=== PATIENT | male | born 1955 | race African-American/Black ===

== ENCOUNTER 2021-11-23 10:07 | Emergency (ER) | payer OTHER ==
[2021-11-23 10:18] VITALS: BP 156/84; PULSE 99; TEMP 98.3; BMI 29.2
== END 2021-11-23 11:18 | disposition home or self-care (01) ==
LOC: JERFT 10:07
DX: H11.32 Conjunctival hemorrhage, left eye (principal)
CPT/HCPCS: 99283-25

== ENCOUNTER 2021-12-02 13:11 | Inpatient (IN) | payer OTHER ==
[2021-12-02] MEDS ORDERED: ALBUTEROL SO4 2.5/IPRATROPIUM 0.5 INH SOL 3 ML VIAL.NEB. NEB ONE (13:29)
[2021-12-02] MEDS ORDERED: methylPREDNISolone NA SUCC 125 MG/2 ML VIAL IVPUSH ONE (13:30)
[2021-12-02] MEDS ORDERED: ACETAMINOPHEN 1000 MG/100 ML BAG IVPB ONE (13:31)
[2021-12-02] MEDS ORDERED: SODIUM CHLORIDE 0.9% 500 ML INFUS.BAG IV ONE (13:47)
[2021-12-02] MEDS ORDERED: ALBUTEROL SO4 0.083% IH SOL 2.5 MG/3 ML VIAL.NEB. NEB ONE (13:50)
[2021-12-02] MEDS ORDERED: ALBUTEROL SO4 0.5 % INH SOLN 2.5 MG/0.5 ML VIAL.NEB. NEB ONE (13:50)
[2021-12-02] MEDS ORDERED: ACETAMINOPHEN INJECTION 100 ML IVPB ONE (13:50)
[2021-12-02 14:12] LABS: VENOUS BASE EXCESS 0.6 mmol/L (-2-2); VENOUS PCO2 64.7 mmHg (38-52); VENOUS PH 7.275 (7.310-7.410)
[2021-12-02 14:16] LABS: BASO % 0.1 % (0-2.0); HEMATOCRIT 47.7 % (35.4-49); HEMOGLOBIN 15.1 GM/dL (11.7-16.9); LYMPH % 6.7 % (8-40); MCH 30.1 pg (25.7-33.7); MCHC 31.7 g/dl (32.0-35.9); MEAN PLT VOLUME 7.8 fl (7.5-11.1); MONO % 7.3 % (3.8-10.2); NEUT % 85.9 % (42.8-82.8); PLATELET COUNT 194 10^3/uL (134-434); RBC 5.03 M/mm3 (4.00-5.60); WHITE BLOOD COUNT 17.7 K/mm3 (4.0-10.0)
[2021-12-02 14:20] LABS: INR 1.2 (0.83-1.09); PROTHROMBIN TIME (PATIENT) 13.8 SEC (9.7-13.0)
[2021-12-02 14:22] LABS: ACTIVATED PTT 38.1 SECONDS (25.2-36.5)
[2021-12-02] MEDS ORDERED: PIPERACILLIN/TAZOB 4.5 GM 4.5 GM in DEXTROSE 5%-WATER 100 ML IVPB ONE (14:30)
[2021-12-02] MEDS ORDERED: AZTREONAM 2 GM in DEXTROSE 5%-WATER 100 ML IVPB ONE (14:47)
[2021-12-02 15:03] LABS: ALBUMIN 3.2 g/dl (3.4-5.0); ALK PHOS 113 U/L (45-117); ANION GAP 7 MMOL/L (8-16); BILIRUBIN,TOTAL 0.7 mg/dL (0.2-1); CHLORIDE 98 mmol/L (98-107); CO2 30 mmol/L (21-32); CREATININE 1.2 mg/dL (0.55-1.3); GLUCOSE,RANDOM 113 mg/dL (74-106); SGOT/AST 23 U/L (15-37); SGPT/ALT 19 U/L (13-61); SODIUM 136 mmol/L (136-145); TOT PROT 7.6 g/dl (6.4-8.2)
[2021-12-02] MEDS ORDERED: AZTREONAM 2 GM VIAL (RESTRICTED TO ID) ONE (15:09)
[2021-12-02] MEDS ORDERED: ENOXAPARIN NA (PORCINE) 40 MG/0.4 ML DISP.SYRIN SQ ONE (17:04)
[2021-12-02 17:06] LABS: EPI CELLS 10 /uL (0-25.1); HYALINE CASTS 8 /uL (0-3.1); URINE APPEARANCE CLEAR; URINE BACTERIA 37 /uL (0-1359); URINE BILIRUBIN NEGATIVE (NEGATIVE); URINE COLOR DK YELLOW; URINE GLUCOSE (UA) NEGATIVE (NEGATIVE); URINE KETONE TRACE (NEGATIVE); URINE LEUK ESTERASE NEGATIVE (NEGATIVE); URINE NITRITE NEGATIVE (NEGATIVE); URINE PROTEIN 1+ (NEGATIVE); URINE RBC 9 /uL (0-23.9); URINE WBC 21 /uL (0-25.8)
[2021-12-02] MEDS ORDERED: ENOXAPARIN NA (PORCINE) 100 MG/1 ML DISP.SYRIN SQ ONE (17:31)
[2021-12-02 18:39] LABS: VENOUS BASE EXCESS 1.5 mmol/L (-2-2); VENOUS O2 SATURATION 85.4 % (70-80)
[2021-12-02 18:41] LABS: VENOUS PCO2 104.5 mmHg (38-52); VENOUS PH 7.139 (7.310-7.410)
[2021-12-02] MEDS ORDERED: ACETAMINOPHEN 325 MG TABLET (FP) PO PRN (21:28)
[2021-12-02] MEDS ORDERED: QUEtiapine FUMARATE 25 MG TABLET PO ONE (22:22)
[2021-12-02] MEDS: MUPIROCIN 2% TOPICAL OINTMENT FOR DECOLONIZATION NS SCH (22:34)
[2021-12-02] MEDS: CHLORHEXIDINE GLUCONATE 4% CLEANSER FOR DECOLONIZATION TP SCH (22:34)
[2021-12-02] MEDS ORDERED: ALBUTEROL SO4 2.5/IPRATROPIUM 0.5 INH SOL 3 ML VIAL.NEB. NEB PRN (23:14)
[2021-12-03] MEDS: ENOXAPARIN NA (PORCINE) 100 MG/1 ML DISP.SYRIN SQ SCH ×2 (05:20→17:14)
[2021-12-03 05:48] LABS: ARTERIAL BLD GAS O2 SATURATION 92.8 % (95-98); ARTERIAL BLOOD GAS BASE EXCESS 1.4 mmol/L (-2-2); ARTERIAL BLOOD GAS PO2 80.7 mmHg (80-100); ARTERIAL BLOOD GAS pH 7.207 (7.350-7.450)
[2021-12-03 05:52] LABS: ALLENS TEST POSITIVE
[2021-12-03 07:15] LABS: BASO % 0.1 % (0-2.0); HEMATOCRIT 43.5 % (35.4-49); HEMOGLOBIN 14.1 GM/dL (11.7-16.9); LYMPH % 6.8 % (8-40); MCH 31.2 pg (25.7-33.7); MCHC 32.5 g/dl (32.0-35.9); MEAN CELL VOLUME 96.1 fl (80-96); MEAN PLT VOLUME 8.9 fl (7.5-11.1); MONO % 4.5 % (3.8-10.2); NEUT % 88.6 % (42.8-82.8); PLATELET COUNT 168 10^3/uL (134-434); RBC 4.53 M/mm3 (4.00-5.60); RDW 12.6 % (11.9-15.9)
[2021-12-03 07:42] LABS: ALBUMIN 2.9 g/dl (3.4-5.0); BLOOD UREA NITROGEN 28.1 mg/dL (7-18); MAGNESIUM 2.4 mg/dL (1.8-2.4)
[2021-12-03 07:45] LABS: CREATININE 1.1 mg/dL (0.55-1.3); PHOSPHOROUS 3.6 mg/dL (2.5-4.9)
[2021-12-03 07:46] LABS: BILIRUBIN,TOTAL 0.6 mg/dL (0.2-1); TOT PROT 7.1 g/dl (6.4-8.2)
[2021-12-03] MEDS ORDERED: ACETAMINOPHEN 1000 MG/100 ML BAG IVPB ONE (08:38)
[2021-12-03] MEDS: BICTEGRAV/EMTRICIT/TENOFOV (BIKTARVY) 50-200-25 MG TABLET PO SCH ×2 (10:00→17:14)
[2021-12-03] MEDS ORDERED: cefTRIAXone SODIUM 1 GM VIAL ONE (10:52)
[2021-12-03] MEDS ORDERED: DEXTROSE 5%-WATER - 50 ML IVPB ONE (10:52)
[2021-12-03] MEDS: CEFTRIAXONE 1 GM in DEXTROSE 5%-WATER - 50 ML IVPB SCH (10:57)
[2021-12-03] MEDS: CLOPIDOGREL BISULFATE 75 MG TABLET (FP) PO SCH (10:59)
[2021-12-03] MEDS: ASPIRIN 81 MG CHEWABLE TABLETS PO SCH (10:59)
[2021-12-03] MEDS: amLODIPine BESYLATE 5 MG TABLET (FP) PO SCH (10:59)
[2021-12-03] MEDS: MUPIROCIN 2% TOPICAL OINTMENT FOR DECOLONIZATION NS SCH ×2 (10:59→21:26)
[2021-12-03] MEDS: MULTIVITAMINS (DAILY MVI) TABLET (FP) PO SCH (10:59)
[2021-12-03] MEDS: methylPREDNISolone NA SUCC 40 MG/1 ML VIAL IVPUSH SCH ×2 (11:00→17:20)
[2021-12-03] MEDS ORDERED: AZITHROMYCIN IVPB 500 MG/250 ML BAG IVPB ONE (11:00)
[2021-12-03] MEDS ORDERED: AZITHROMYCIN IVPB 500 MG in DEXTROSE 5%-WATER - 250 ML IVPB ONE (11:00)
[2021-12-03 11:10] LABS: ARTERIAL BLD GAS O2 SATURATION 82.6 % (95-98); ARTERIAL BLOOD GAS BASE EXCESS 4.9 mmol/L (-2-2); ARTERIAL BLOOD GAS PO2 54.5 mmHg (80-100); ARTERIAL BLOOD GAS pH 7.272 (7.350-7.450)
[2021-12-03 11:11] LABS: ALLENS TEST POSITIVE
[2021-12-03] MEDS: ALBUTEROL SO4 2.5/IPRATROPIUM 0.5 INH SOL 3 ML VIAL.NEB. NEB SCH ×3 (12:00→20:05)
[2021-12-03 12:17] LABS: CALCIUM 9.2 mg/dL (8.5-10.1)
[2021-12-03 12:18] LABS: BLOOD UREA NITROGEN 28.5 mg/dL (7-18)
[2021-12-03 12:21] LABS: CREATININE 0.9 mg/dL (0.55-1.3)
[2021-12-03] MEDS: NICOTINE 21 MG/24 HOURS TOPICAL PATCH TD SCH (12:44)
[2021-12-03] MEDS: prednisoLONE ACETATE 1% OPHTH SUSP 5 ML BOTTLE OD SCH ×2 (17:13→21:26)
[2021-12-03] MEDS: CHLORHEXIDINE GLUCONATE 4% CLEANSER FOR DECOLONIZATION TP SCH (21:26)
[2021-12-03] MEDS ORDERED: QUEtiapine FUMARATE 25 MG TABLET PO ONE (22:00)
[2021-12-04] MEDS ORDERED: LORazepam 2 MG/ML SDV VIAL IM ONE (00:48)
[2021-12-04] MEDS ORDERED: ADENOSINE 6 MG/2 ML VIAL IVPUSH ONE (01:01)
[2021-12-04] MEDS ORDERED: dilTIAZem HCL 50 MG/10 ML - 10 ML VIAL IVPUSH ONE ×2 (01:16→03:13)
[2021-12-04] MEDS: CALCIUM GLUCONATE 10% - 1,000 MG/10 ML VIAL IVPB ONE ×2 (01:18→01:28)
[2021-12-04] MEDS ORDERED: CALCIUM GLUCONATE IN NACL 1 GM/50 ML BAG IVPB ONE (01:30)
[2021-12-04] MEDS: methylPREDNISolone NA SUCC 40 MG/1 ML VIAL IVPUSH SCH ×3 (03:24→17:31)
[2021-12-04] MEDS: ENOXAPARIN NA (PORCINE) 100 MG/1 ML DISP.SYRIN SQ SCH ×2 (05:36→17:30)
[2021-12-04 06:44] LABS: HEMATOCRIT 44.5 % (35.4-49); HEMOGLOBIN 14.4 GM/dL (11.7-16.9); MCH 30.7 pg (25.7-33.7); MCHC 32.4 g/dl (32.0-35.9); MEAN CELL VOLUME 94.6 fl (80-96); MEAN PLT VOLUME 8.8 fl (7.5-11.1); PLATELET COUNT 200 10^3/uL (134-434); RDW 12.6 % (11.9-15.9); WHITE BLOOD COUNT 12.7 K/mm3 (4.0-10.0)
[2021-12-04 07:05] LABS: ALBUMIN 2.7 g/dl (3.4-5.0); MAGNESIUM 2.5 mg/dL (1.8-2.4)
[2021-12-04 07:08] LABS: CREATININE 1.2 mg/dL (0.55-1.3)
[2021-12-04 07:09] LABS: BILIRUBIN,TOTAL 0.3 mg/dL (0.2-1)
[2021-12-04 07:20] LABS: BLOOD UREA NITROGEN 58.5 mg/dL (7-18)
[2021-12-04] MEDS: ALBUTEROL SO4 2.5/IPRATROPIUM 0.5 INH SOL 3 ML VIAL.NEB. NEB SCH ×4 (08:20→20:33)
[2021-12-04] MEDS ORDERED: DEXTROSE 5%-WATER - 50 ML IVPB ONE (09:05)
[2021-12-04] MEDS ORDERED: cefTRIAXone SODIUM 1 GM VIAL ONE (09:05)
[2021-12-04] MEDS: CEFTRIAXONE 1 GM in DEXTROSE 5%-WATER - 50 ML IVPB SCH (09:27)
[2021-12-04] MEDS: CLOPIDOGREL BISULFATE 75 MG TABLET (FP) PO SCH (09:28)
[2021-12-04] MEDS: amLODIPine BESYLATE 5 MG TABLET (FP) PO SCH (09:28)
[2021-12-04] MEDS: AZITHROMYCIN IVPB 250 MG in DEXTROSE 5%-WATER - 250 ML IVPB SCH (09:28)
[2021-12-04] MEDS: MULTIVITAMINS (DAILY MVI) TABLET (FP) PO SCH (09:28)
[2021-12-04] MEDS: NICOTINE 21 MG/24 HOURS TOPICAL PATCH TD SCH (09:28)
[2021-12-04] MEDS: prednisoLONE ACETATE 1% OPHTH SUSP 5 ML BOTTLE OD SCH ×4 (09:30→21:37)
[2021-12-04] MEDS: MUPIROCIN 2% TOPICAL OINTMENT FOR DECOLONIZATION NS SCH ×2 (09:30→21:37)
[2021-12-04] MEDS: ASPIRIN 81 MG CHEWABLE TABLETS PO SCH (09:45)
[2021-12-04] MEDS: DEXMEDETOMIDINE IN 0.9 % NACL 400 MCG/100 ML VIAL IVPB SCH (11:47)
[2021-12-04] MEDS ORDERED: SODIUM CHLORIDE 500 ML IV STA (12:21)
[2021-12-04] MEDS: BICTEGRAV/EMTRICIT/TENOFOV (BIKTARVY) 50-200-25 MG TABLET PO SCH (13:33)
[2021-12-04] MEDS ORDERED: dilTIAZem HCL 60 MG TABLET PO SCH (14:00)
[2021-12-04] MEDS ORDERED: BICTEGRAV/EMTRICIT/TENOFOV (BIKTARVY) 50-200-25 MG TABLET PO SCH (14:00)
[2021-12-04] MEDS ORDERED: SODIUM CHLORIDE 1,000 ML IV STA (14:09)
[2021-12-04] MEDS ORDERED: SODIUM CHLORIDE 1,000 ML IV SCH (17:00)
[2021-12-04] MEDS: CHLORHEXIDINE GLUCONATE 4% CLEANSER FOR DECOLONIZATION TP SCH (21:37)
[2021-12-04] MEDS: QUEtiapine FUMARATE 25 MG TABLET PO SCH (21:38)
[2021-12-04] MEDS: ALPRAZolam 0.25 MG TABLET PO ONE ×2 (23:00→23:12)
[2021-12-04] MEDS: SODIUM CHLORIDE 1,000 ML IV SCH (23:00)
[2021-12-05] MEDS: methylPREDNISolone NA SUCC 40 MG/1 ML VIAL IVPUSH SCH ×3 (01:05→18:04)
[2021-12-05] MEDS ORDERED: SODIUM CHLORIDE 500 ML IV STA (01:27)
[2021-12-05] MEDS: DEXMEDETOMIDINE IN 0.9 % NACL 400 MCG/100 ML VIAL IVPB SCH ×3 (02:46→15:13)
[2021-12-05] MEDS: ENOXAPARIN NA (PORCINE) 100 MG/1 ML DISP.SYRIN SQ SCH (05:41)
[2021-12-05 07:15] LABS: BASO % 0.1 % (0-2.0); HEMATOCRIT 33.7 % (35.4-49); HEMOGLOBIN 11.1 GM/dL (11.7-16.9); LYMPH % 10.1 % (8-40); MCH 30.9 pg (25.7-33.7); MCHC 32.9 g/dl (32.0-35.9); MEAN CELL VOLUME 94.1 fl (80-96); MEAN PLT VOLUME 8.9 fl (7.5-11.1); MONO % 3.3 % (3.8-10.2); NEUT % 86.5 % (42.8-82.8); PLATELET COUNT 195 10^3/uL (134-434); RBC 3.58 M/mm3 (4.00-5.60); RDW 12.5 % (11.9-15.9); WHITE BLOOD COUNT 10.9 K/mm3 (4.0-10.0)
[2021-12-05 07:43] LABS: ALBUMIN 2.4 g/dl (3.4-5.0)
[2021-12-05 07:44] LABS: CALCIUM 8.5 mg/dL (8.5-10.1)
[2021-12-05 07:47] LABS: CREATININE 1.2 mg/dL (0.55-1.3)
[2021-12-05 07:48] LABS: BILIRUBIN,TOTAL 0.2 mg/dL (0.2-1); TOT PROT 5.6 g/dl (6.4-8.2)
[2021-12-05 07:51] LABS: BLOOD UREA NITROGEN 83.7 mg/dL (7-18)
[2021-12-05] MEDS: ALBUTEROL SO4 2.5/IPRATROPIUM 0.5 INH SOL 3 ML VIAL.NEB. NEB SCH ×4 (08:20→20:05)
[2021-12-05] MEDS ORDERED: DEXTROSE 5%-WATER - 50 ML IVPB ONE (08:45)
[2021-12-05] MEDS ORDERED: cefTRIAXone SODIUM 1 GM VIAL ONE (08:45)
[2021-12-05] MEDS: MULTIVITAMINS (DAILY MVI) TABLET (FP) PO SCH (09:49)
[2021-12-05] MEDS: CEFTRIAXONE 1 GM in DEXTROSE 5%-WATER - 50 ML IVPB SCH (09:49)
[2021-12-05] MEDS: ASPIRIN 81 MG CHEWABLE TABLETS PO SCH (09:49)
[2021-12-05] MEDS: NICOTINE 21 MG/24 HOURS TOPICAL PATCH TD SCH (09:50)
[2021-12-05] MEDS: MUPIROCIN 2% TOPICAL OINTMENT FOR DECOLONIZATION NS SCH (09:50)
[2021-12-05] MEDS: amLODIPine BESYLATE 5 MG TABLET (FP) PO SCH (09:52)
[2021-12-05] MEDS: CLOPIDOGREL BISULFATE 75 MG TABLET (FP) PO SCH (09:52)
[2021-12-05] MEDS: BICTEGRAV/EMTRICIT/TENOFOV (BIKTARVY) 50-200-25 MG TABLET PO SCH (09:53)
[2021-12-05] MEDS: prednisoLONE ACETATE 1% OPHTH SUSP 5 ML BOTTLE OD SCH ×4 (09:55→22:18)
[2021-12-05] MEDS: AZITHROMYCIN IVPB 250 MG in DEXTROSE 5%-WATER - 250 ML IVPB SCH (10:51)
[2021-12-05] MEDS ORDERED: dilTIAZem HCL 125 MG/25 ML - 25 ML VIAL ONE (12:56)
[2021-12-05] MEDS ORDERED: FLU VACC QS2021-22(6MOS UP)/PF 60 MCG/0.5 ML SYRINGE IM ONE (13:13)
[2021-12-05] MEDS ORDERED: LORazepam 2 MG/ML SDV VIAL IVPUSH ONE ×2 (13:15→20:38)
[2021-12-05] MEDS ORDERED: DESMOPRESSIN ACETATE 4 MCG/ML AMP IVPB STA (14:33)
[2021-12-05 14:40] LABS: HEMATOCRIT 30.3 % (35.4-49); HEMOGLOBIN 9.8 GM/dL (11.7-16.9); MCH 30.2 pg (25.7-33.7); MCHC 32.2 g/dl (32.0-35.9); MEAN CELL VOLUME 93.7 fl (80-96); MEAN PLT VOLUME 7.9 fl (7.5-11.1); PLATELET COUNT 230 10^3/uL (134-434); RBC 3.24 M/mm3 (4.00-5.60); RDW 12.8 % (11.9-15.9); WHITE BLOOD COUNT 17.5 K/mm3 (4.0-10.0)
[2021-12-05] MEDS ORDERED: PHENYLEPHRINE NS PREMIX 50,000 MCG/500 ML BAG IVPB SCH (14:45)
[2021-12-05 15:02] LABS: CALCIUM 8.7 mg/dL (8.5-10.1)
[2021-12-05 15:03] LABS: MAGNESIUM 2.4 mg/dL (1.8-2.4)
[2021-12-05 15:06] LABS: CREATININE 1.4 mg/dL (0.55-1.3); PHOSPHOROUS 2.5 mg/dL (2.5-4.9)
[2021-12-05] MEDS: PANTOPRAZOLE SODIUM 80 MG in SODIUM CHLORIDE 100 ML IVPB SCH (15:19)
[2021-12-05] MEDS: SODIUM CHLORIDE 1,000 ML IV SCH (22:00)
[2021-12-05] MEDS: PHENYLEPHRINE HCL 50,000 MCG in SODIUM CHLORIDE 50,000 MCG/500 ML INFUS.BAG IV SCH (22:17)
[2021-12-05] MEDS: QUEtiapine FUMARATE 25 MG TABLET PO SCH (22:18)
[2021-12-06] MEDS: methylPREDNISolone NA SUCC 40 MG/1 ML VIAL IVPUSH SCH ×3 (02:00→17:25)
[2021-12-06] MEDS ORDERED: INSULIN (NOVOLOG) ASPART 100 UNITS/ML 10ML VIAL ONE (03:34)
[2021-12-06] MEDS: PANTOPRAZOLE SODIUM 80 MG in SODIUM CHLORIDE 100 ML IVPB SCH ×3 (05:00→22:29)
[2021-12-06] MEDS: ALBUTEROL SO4 2.5/IPRATROPIUM 0.5 INH SOL 3 ML VIAL.NEB. NEB SCH ×4 (08:44→20:09)
[2021-12-06 09:01] LABS: BASO % 0.1 % (0-2.0); HEMATOCRIT 27.9 % (35.4-49); HEMOGLOBIN 9.2 GM/dL (11.7-16.9); LYMPH % 14.2 % (8-40); MCH 30.8 pg (25.7-33.7); MCHC 33.2 g/dl (32.0-35.9); MONO % 4.7 % (3.8-10.2); PLATELET COUNT 163 10^3/uL (134-434); RDW 13.3 % (11.9-15.9); WHITE BLOOD COUNT 9.3 K/mm3 (4.0-10.0)
[2021-12-06 09:22] LABS: ALBUMIN 2.3 g/dl (3.4-5.0); BLOOD UREA NITROGEN 74.4 mg/dL (7-18); CALCIUM 8.3 mg/dL (8.5-10.1); MAGNESIUM 2.6 mg/dL (1.8-2.4)
[2021-12-06 09:25] LABS: CREATININE 1.1 mg/dL (0.55-1.3); PHOSPHOROUS 4.6 mg/dL (2.5-4.9)
[2021-12-06 09:27] LABS: BILIRUBIN,TOTAL 0.3 mg/dL (0.2-1); TOT PROT 5.3 g/dl (6.4-8.2)
[2021-12-06] MEDS ORDERED: cefTRIAXone SODIUM 1 GM VIAL ONE (10:43)
[2021-12-06] MEDS ORDERED: DEXTROSE 5%-WATER - 50 ML IVPB ONE (10:43)
[2021-12-06] MEDS: CEFTRIAXONE 1 GM in DEXTROSE 5%-WATER - 50 ML IVPB SCH (10:48)
[2021-12-06] MEDS: NICOTINE 21 MG/24 HOURS TOPICAL PATCH TD SCH (10:49)
[2021-12-06] MEDS: AZITHROMYCIN IVPB 250 MG in DEXTROSE 5%-WATER - 250 ML IVPB SCH (10:49)
[2021-12-06] MEDS: amLODIPine BESYLATE 5 MG TABLET (FP) PO SCH (10:50)
[2021-12-06] MEDS: prednisoLONE ACETATE 1% OPHTH SUSP 5 ML BOTTLE OD SCH ×4 (10:50→21:16)
[2021-12-06] MEDS: BICTEGRAV/EMTRICIT/TENOFOV (BIKTARVY) 50-200-25 MG TABLET PO SCH (10:51)
[2021-12-06] MEDS: MULTIVITAMINS (DAILY MVI) TABLET (FP) PO SCH (10:51)
[2021-12-06] MEDS: DEXMEDETOMIDINE IN 0.9 % NACL 400 MCG/100 ML VIAL IVPB SCH ×2 (10:51→17:26)
[2021-12-06] MEDS: PHENYLEPHRINE HCL 50,000 MCG in SODIUM CHLORIDE 50,000 MCG/500 ML INFUS.BAG IV SCH (17:25)
[2021-12-06] MEDS ORDERED: LORazepam 2 MG/ML SDV VIAL IVPUSH ONE ×2 (20:01→20:22)
[2021-12-06] MEDS: QUEtiapine FUMARATE 25 MG TABLET PO SCH (21:16)
[2021-12-06] MEDS: SODIUM CHLORIDE 1,000 ML IV SCH (22:29)
[2021-12-07] MEDS ORDERED: QUEtiapine FUMARATE 25 MG TABLET PO ONE (01:22)
[2021-12-07] MEDS: methylPREDNISolone NA SUCC 40 MG/1 ML VIAL IVPUSH SCH ×3 (01:31→21:12)
[2021-12-07 06:47] LABS: BASO % 0.1 % (0-2.0); HEMATOCRIT 26.4 % (35.4-49); HEMOGLOBIN 8.8 GM/dL (11.7-16.9); LYMPH % 11.7 % (8-40); MCHC 33.3 g/dl (32.0-35.9); MEAN CELL VOLUME 93.1 fl (80-96); MEAN PLT VOLUME 8.1 fl (7.5-11.1); MONO % 5.2 % (3.8-10.2); PLATELET COUNT 158 10^3/uL (134-434); RBC 2.84 M/mm3 (4.00-5.60); RDW 13.1 % (11.9-15.9); WHITE BLOOD COUNT 8.6 K/mm3 (4.0-10.0)
[2021-12-07 07:07] LABS: ALBUMIN 2.4 g/dl (3.4-5.0); BLOOD UREA NITROGEN 50.5 mg/dL (7-18)
[2021-12-07 07:10] LABS: CREATININE 0.8 mg/dL (0.55-1.3)
[2021-12-07 07:12] LABS: BILIRUBIN,TOTAL 0.2 mg/dL (0.2-1); TOT PROT 5.3 g/dl (6.4-8.2)
[2021-12-07] MEDS ORDERED: cefTRIAXone SODIUM 1 GM VIAL ONE (08:07)
[2021-12-07] MEDS ORDERED: DEXTROSE 5%-WATER - 50 ML IVPB ONE (08:08)
[2021-12-07] MEDS: ALBUTEROL SO4 2.5/IPRATROPIUM 0.5 INH SOL 3 ML VIAL.NEB. NEB SCH ×4 (08:43→20:00)
[2021-12-07] MEDS: AZITHROMYCIN IVPB 250 MG in DEXTROSE 5%-WATER - 250 ML IVPB SCH (09:28)
[2021-12-07] MEDS: MULTIVITAMINS (DAILY MVI) TABLET (FP) PO SCH (09:29)
[2021-12-07] MEDS: BICTEGRAV/EMTRICIT/TENOFOV (BIKTARVY) 50-200-25 MG TABLET PO SCH (09:29)
[2021-12-07] MEDS: NICOTINE 21 MG/24 HOURS TOPICAL PATCH TD SCH (09:29)
[2021-12-07] MEDS: CEFTRIAXONE 1 GM in DEXTROSE 5%-WATER - 50 ML IVPB SCH (09:33)
[2021-12-07] MEDS: prednisoLONE ACETATE 1% OPHTH SUSP 5 ML BOTTLE OD SCH ×4 (09:34→21:16)
[2021-12-07] MEDS: amLODIPine BESYLATE 5 MG TABLET (FP) PO SCH ×2 (09:34→11:17)
[2021-12-07] MEDS: PANTOPRAZOLE SODIUM 80 MG in SODIUM CHLORIDE 100 ML IVPB SCH ×3 (09:34→21:11)
[2021-12-07] MEDS ORDERED: NICOTINE 21 MG/24 HOURS TOPICAL PATCH TD SCH (10:37)
[2021-12-07] MEDS: DEXMEDETOMIDINE IN 0.9 % NACL 400 MCG/100 ML VIAL IVPB SCH (11:16)
[2021-12-07 14:50] VITALS: BMI 28.1
[2021-12-07] MEDS: NICOTINE 14 MG/24 HOURS TOPICAL PATCH TD SCH (18:00)
[2021-12-07] MEDS: PHENYLEPHRINE HCL 50,000 MCG in SODIUM CHLORIDE 50,000 MCG/500 ML INFUS.BAG IV SCH (18:01)
[2021-12-07] MEDS ORDERED: LORazepam 2 MG/ML SDV VIAL IVPUSH ONE (21:03)
[2021-12-07] MEDS: QUEtiapine FUMARATE 25 MG TABLET PO SCH (21:19)
[2021-12-07] MEDS ORDERED: SODIUM CHLORIDE 0.9% 250 ML INFUS.BAG IV ONE (22:07)
[2021-12-08] MEDS ORDERED: LORazepam 2 MG/ML SDV VIAL IVPUSH ONE (00:06)
[2021-12-08] MEDS: DEXMEDETOMIDINE IN 0.9 % NACL 400 MCG/100 ML VIAL IVPB SCH ×2 (00:09→13:32)
[2021-12-08] MEDS: PANTOPRAZOLE SODIUM 80 MG in SODIUM CHLORIDE 100 ML IVPB SCH ×3 (02:30→18:00)
[2021-12-08 07:20] LABS: BASO % 0.1 % (0-2.0); EOS % 0.1 % (0-4.5); HEMATOCRIT 26.3 % (35.4-49); HEMOGLOBIN 8.6 GM/dL (11.7-16.9); LYMPH % 11.6 % (8-40); MCH 30.4 pg (25.7-33.7); MCHC 32.8 g/dl (32.0-35.9); MEAN CELL VOLUME 92.5 fl (80-96); MEAN PLT VOLUME 7.7 fl (7.5-11.1); MONO % 6.6 % (3.8-10.2); NEUT % 81.6 % (42.8-82.8); PLATELET COUNT 202 10^3/uL (134-434); RBC 2.84 M/mm3 (4.00-5.60); RDW 12.8 % (11.9-15.9); WHITE BLOOD COUNT 10.9 K/mm3 (4.0-10.0)
[2021-12-08 07:37] LABS: ALBUMIN 2.4 g/dl (3.4-5.0); BLOOD UREA NITROGEN 29.2 mg/dL (7-18); CALCIUM 8.1 mg/dL (8.5-10.1)
[2021-12-08 07:38] LABS: MAGNESIUM 2.5 mg/dL (1.8-2.4); PHOSPHOROUS 2.2 mg/dL (2.5-4.9)
[2021-12-08 07:39] LABS: BILIRUBIN,TOTAL 0.2 mg/dL (0.2-1)
[2021-12-08 07:40] LABS: CREATININE 0.7 mg/dL (0.55-1.3); TOT PROT 4.9 g/dl (6.4-8.2)
[2021-12-08] MEDS: ALBUTEROL SO4 2.5/IPRATROPIUM 0.5 INH SOL 3 ML VIAL.NEB. NEB SCH ×4 (08:07→20:10)
[2021-12-08] MEDS ORDERED: cefTRIAXone SODIUM 1 GM VIAL ONE (10:12)
[2021-12-08] MEDS ORDERED: DEXTROSE 5%-WATER - 50 ML IVPB ONE (10:13)
[2021-12-08] MEDS: CEFTRIAXONE 1 GM in DEXTROSE 5%-WATER - 50 ML IVPB SCH (10:15)
[2021-12-08] MEDS: methylPREDNISolone NA SUCC 40 MG/1 ML VIAL IVPUSH SCH ×2 (10:16→21:08)
[2021-12-08] MEDS: MULTIVITAMINS (DAILY MVI) TABLET (FP) PO SCH (10:16)
[2021-12-08] MEDS: amLODIPine BESYLATE 5 MG TABLET (FP) PO SCH (10:16)
[2021-12-08] MEDS: NICOTINE 14 MG/24 HOURS TOPICAL PATCH TD SCH (10:17)
[2021-12-08] MEDS: BICTEGRAV/EMTRICIT/TENOFOV (BIKTARVY) 50-200-25 MG TABLET PO SCH (10:17)
[2021-12-08] MEDS: prednisoLONE ACETATE 1% OPHTH SUSP 5 ML BOTTLE OD SCH ×4 (10:18→21:18)
[2021-12-08] MEDS: AZITHROMYCIN IVPB 250 MG in DEXTROSE 5%-WATER - 250 ML IVPB SCH (10:19)
[2021-12-08] MEDS ORDERED: LORazepam 2 MG/ML SDV VIAL IVPUSH SCH (10:30)
[2021-12-08] MEDS ORDERED: LORazepam 2 MG/ML SDV VIAL IVPUSH PRN (10:42)
[2021-12-08] MEDS ORDERED: POTASSIUM PHOSPHATE 15 MM in DEXTROSE 5%-WATER - 100 ML IVPB ONE (15:30)
[2021-12-08] MEDS: OLANZapine 5 MG TABLET PO SCH (21:09)
[2021-12-08] MEDS ORDERED: OLANZapine 5 MG TABLET PO SCH (22:00)
[2021-12-09 07:02] LABS: HEMATOCRIT 25.8 % (35.4-49); HEMOGLOBIN 8.6 GM/dL (11.7-16.9); LYMPH % 12.8 % (8-40); MCH 31.1 pg (25.7-33.7); MCHC 33.3 g/dl (32.0-35.9); MEAN CELL VOLUME 93.3 fl (80-96); MEAN PLT VOLUME 7.7 fl (7.5-11.1); MONO % 7.4 % (3.8-10.2); NEUT % 79.8 % (42.8-82.8); PLATELET COUNT 236 10^3/uL (134-434); RBC 2.76 M/mm3 (4.00-5.60); RDW 12.7 % (11.9-15.9); WHITE BLOOD COUNT 13.6 K/mm3 (4.0-10.0)
[2021-12-09 07:25] LABS: CALCIUM 8.1 mg/dL (8.5-10.1)
[2021-12-09 07:26] LABS: ALBUMIN 2.6 g/dl (3.4-5.0); BLOOD UREA NITROGEN 19.9 mg/dL (7-18); MAGNESIUM 2.5 mg/dL (1.8-2.4)
[2021-12-09 07:29] LABS: CREATININE 0.7 mg/dL (0.55-1.3); PHOSPHOROUS 3.4 mg/dL (2.5-4.9)
[2021-12-09 07:30] LABS: BILIRUBIN,TOTAL 0.3 mg/dL (0.2-1); TOT PROT 5.3 g/dl (6.4-8.2)
[2021-12-09] MEDS ORDERED: cefTRIAXone SODIUM 1 GM VIAL ONE (08:57)
[2021-12-09] MEDS ORDERED: DEXTROSE 5%-WATER - 50 ML IVPB ONE (08:57)
[2021-12-09] MEDS: CLOPIDOGREL BISULFATE 75 MG TABLET (FP) PO SCH (08:59)
[2021-12-09] MEDS: MULTIVITAMINS (DAILY MVI) TABLET (FP) PO SCH (08:59)
[2021-12-09] MEDS: methylPREDNISolone NA SUCC 40 MG/1 ML VIAL IVPUSH SCH ×2 (08:59→21:32)
[2021-12-09] MEDS: amLODIPine BESYLATE 5 MG TABLET (FP) PO SCH (08:59)
[2021-12-09] MEDS: CEFTRIAXONE 1 GM in DEXTROSE 5%-WATER - 50 ML IVPB SCH (09:01)
[2021-12-09] MEDS: BICTEGRAV/EMTRICIT/TENOFOV (BIKTARVY) 50-200-25 MG TABLET PO SCH (09:02)
[2021-12-09] MEDS: prednisoLONE ACETATE 1% OPHTH SUSP 5 ML BOTTLE OD SCH ×4 (09:03→21:31)
[2021-12-09] MEDS: NICOTINE 14 MG/24 HOURS TOPICAL PATCH TD SCH (09:03)
[2021-12-09] MEDS: OLANZapine 5 MG TABLET PO SCH ×2 (09:04→21:32)
[2021-12-09] MEDS: ALBUTEROL SO4 2.5/IPRATROPIUM 0.5 INH SOL 3 ML VIAL.NEB. NEB SCH ×4 (09:44→20:05)
[2021-12-09] MEDS ORDERED: PANTOPRAZOLE SODIUM 40 MG VIAL IVPUSH SCH (10:00)
[2021-12-09] MEDS: PANTOPRAZOLE SODIUM 40 MG VIAL IVPUSH SCH (13:10)
[2021-12-09] MEDS ORDERED: METOPROLOL TARTRATE 5 MG/5 ML VIAL IVPUSH ONE (14:23)
[2021-12-09] MEDS ORDERED: LORazepam 2 MG/ML SDV VIAL IVPUSH PRN (14:28)
[2021-12-09] MEDS: LORazepam 2 MG/ML SDV VIAL IVPUSH PRN (14:39)
[2021-12-10 06:49] LABS: HEMATOCRIT 28.3 % (35.4-49); HEMOGLOBIN 9.3 GM/dL (11.7-16.9); LYMPH % 11.1 % (8-40); MCH 31.2 pg (25.7-33.7); MCHC 32.9 g/dl (32.0-35.9); MEAN CELL VOLUME 94.8 fl (80-96); MEAN PLT VOLUME 7.3 fl (7.5-11.1); MONO % 5.8 % (3.8-10.2); NEUT % 83.1 % (42.8-82.8); PLATELET COUNT 255 10^3/uL (134-434); RBC 2.98 M/mm3 (4.00-5.60); RDW 12.8 % (11.9-15.9); WHITE BLOOD COUNT 15.8 K/mm3 (4.0-10.0)
[2021-12-10 07:17] LABS: ALBUMIN 2.4 g/dl (3.4-5.0); BLOOD UREA NITROGEN 18.9 mg/dL (7-18); CALCIUM 8.2 mg/dL (8.5-10.1); MAGNESIUM 2.4 mg/dL (1.8-2.4)
[2021-12-10 07:19] LABS: PHOSPHOROUS 3.1 mg/dL (2.5-4.9)
[2021-12-10 07:20] LABS: CREATININE 0.7 mg/dL (0.55-1.3); TOT PROT 5.4 g/dl (6.4-8.2)
[2021-12-10 07:21] LABS: BILIRUBIN,TOTAL 0.2 mg/dL (0.2-1)
[2021-12-10] MEDS: ALBUTEROL SO4 2.5/IPRATROPIUM 0.5 INH SOL 3 ML VIAL.NEB. NEB SCH ×4 (07:48→20:50)
[2021-12-10] MEDS ORDERED: cefTRIAXone SODIUM 1 GM VIAL ONE (09:49)
[2021-12-10] MEDS ORDERED: DEXTROSE 5%-WATER - 50 ML IVPB ONE (09:50)
[2021-12-10] MEDS: CEFTRIAXONE 1 GM in DEXTROSE 5%-WATER - 50 ML IVPB SCH (10:34)
[2021-12-10] MEDS: methylPREDNISolone NA SUCC 40 MG/1 ML VIAL IVPUSH SCH ×2 (10:39→21:17)
[2021-12-10] MEDS: PANTOPRAZOLE SODIUM 40 MG VIAL IVPUSH SCH (10:41)
[2021-12-10] MEDS: OLANZapine 5 MG TABLET PO SCH ×2 (10:42→21:18)
[2021-12-10] MEDS: MULTIVITAMINS (DAILY MVI) TABLET (FP) PO SCH (10:42)
[2021-12-10] MEDS: NICOTINE 14 MG/24 HOURS TOPICAL PATCH TD SCH (10:43)
[2021-12-10] MEDS: CLOPIDOGREL BISULFATE 75 MG TABLET (FP) PO SCH (10:43)
[2021-12-10] MEDS: amLODIPine BESYLATE 5 MG TABLET (FP) PO SCH (10:43)
[2021-12-10] MEDS: BICTEGRAV/EMTRICIT/TENOFOV (BIKTARVY) 50-200-25 MG TABLET PO SCH (11:57)
[2021-12-10] MEDS: prednisoLONE ACETATE 1% OPHTH SUSP 5 ML BOTTLE OD SCH ×4 (11:57→21:25)
[2021-12-10] MEDS ORDERED: ACETAMINOPHEN 325 MG TABLET (FP) PO ONE (13:31)
[2021-12-10] MEDS: metoPROLOL SUCCINATE 25 MG TAB.SR.24H (FP) PO SCH (21:18)
[2021-12-11] MEDS: ALBUTEROL SO4 2.5/IPRATROPIUM 0.5 INH SOL 3 ML VIAL.NEB. NEB SCH ×4 (06:59→20:05)
[2021-12-11 07:17] LABS: HEMATOCRIT 28.4 % (35.4-49); HEMOGLOBIN 9.4 GM/dL (11.7-16.9); MCH 30.9 pg (25.7-33.7); MEAN CELL VOLUME 93.7 fl (80-96); MEAN PLT VOLUME 7.1 fl (7.5-11.1); PLATELET COUNT 292 10^3/uL (134-434); RBC 3.03 M/mm3 (4.00-5.60); RDW 13.1 % (11.9-15.9); WHITE BLOOD COUNT 20.1 K/mm3 (4.0-10.0)
[2021-12-11 07:40] LABS: CALCIUM 8.1 mg/dL (8.5-10.1)
[2021-12-11 07:41] LABS: ALBUMIN 2.5 g/dl (3.4-5.0); BLOOD UREA NITROGEN 20.3 mg/dL (7-18); MAGNESIUM 2.4 mg/dL (1.8-2.4)
[2021-12-11 07:44] LABS: CREATININE 0.7 mg/dL (0.55-1.3); PHOSPHOROUS 3.1 mg/dL (2.5-4.9)
[2021-12-11 07:45] LABS: BILIRUBIN,TOTAL 0.3 mg/dL (0.2-1); TOT PROT 5.5 g/dl (6.4-8.2)
[2021-12-11] MEDS ORDERED: cefTRIAXone SODIUM 1 GM VIAL ONE (09:34)
[2021-12-11] MEDS ORDERED: DEXTROSE 5%-WATER - 50 ML IVPB ONE (09:34)
[2021-12-11] MEDS ORDERED: CEFTRIAXONE 1 GM in DEXTROSE 5%-WATER - 50 ML IVPB SCH (10:00)
[2021-12-11] MEDS: BICTEGRAV/EMTRICIT/TENOFOV (BIKTARVY) 50-200-25 MG TABLET PO SCH (10:39)
[2021-12-11] MEDS: PANTOPRAZOLE SODIUM 40 MG VIAL IVPUSH SCH (10:42)
[2021-12-11] MEDS: methylPREDNISolone NA SUCC 40 MG/1 ML VIAL IVPUSH SCH ×2 (10:44→21:19)
[2021-12-11] MEDS: metoPROLOL SUCCINATE 25 MG TAB.SR.24H (FP) PO SCH (10:45)
[2021-12-11] MEDS: CLOPIDOGREL BISULFATE 75 MG TABLET (FP) PO SCH (10:45)
[2021-12-11] MEDS: MULTIVITAMINS (DAILY MVI) TABLET (FP) PO SCH (10:45)
[2021-12-11] MEDS: OLANZapine 5 MG TABLET PO SCH ×2 (10:45→21:19)
[2021-12-11] MEDS: amLODIPine BESYLATE 5 MG TABLET (FP) PO SCH (10:45)
[2021-12-11] MEDS: NICOTINE 14 MG/24 HOURS TOPICAL PATCH TD SCH (10:46)
[2021-12-11] MEDS: prednisoLONE ACETATE 1% OPHTH SUSP 5 ML BOTTLE OD SCH ×5 (10:47→21:22)
[2021-12-12] MEDS: ALBUTEROL SO4 2.5/IPRATROPIUM 0.5 INH SOL 3 ML VIAL.NEB. NEB SCH ×4 (07:35→19:25)
[2021-12-12 08:44] LABS: HEMOGLOBIN 8.9 GM/dL (11.7-16.9); MCH 31.2 pg (25.7-33.7); MCHC 32.9 g/dl (32.0-35.9); MEAN CELL VOLUME 94.9 fl (80-96); MEAN PLT VOLUME 7.3 fl (7.5-11.1); PLATELET COUNT 311 10^3/uL (134-434); RBC 2.85 M/mm3 (4.00-5.60); RDW 12.9 % (11.9-15.9); WHITE BLOOD COUNT 21.1 K/mm3 (4.0-10.0)
[2021-12-12 09:24] LABS: ALBUMIN 2.5 g/dl (3.4-5.0); CALCIUM 8.3 mg/dL (8.5-10.1); MAGNESIUM 2.4 mg/dL (1.8-2.4)
[2021-12-12 09:27] LABS: CREATININE 0.7 mg/dL (0.55-1.3); PHOSPHOROUS 3.5 mg/dL (2.5-4.9)
[2021-12-12 09:29] LABS: BILIRUBIN,TOTAL 0.3 mg/dL (0.2-1); TOT PROT 5.4 g/dl (6.4-8.2)
[2021-12-12] MEDS: PANTOPRAZOLE SODIUM 40 MG VIAL IVPUSH SCH (11:28)
[2021-12-12] MEDS: methylPREDNISolone NA SUCC 40 MG/1 ML VIAL IVPUSH SCH (11:28)
[2021-12-12] MEDS: MULTIVITAMINS (DAILY MVI) TABLET (FP) PO SCH (11:29)
[2021-12-12] MEDS: NICOTINE 14 MG/24 HOURS TOPICAL PATCH TD SCH (11:29)
[2021-12-12] MEDS: OLANZapine 5 MG TABLET PO SCH ×2 (11:29→21:51)
[2021-12-12] MEDS: amLODIPine BESYLATE 5 MG TABLET (FP) PO SCH (11:29)
[2021-12-12] MEDS: CLOPIDOGREL BISULFATE 75 MG TABLET (FP) PO SCH (11:29)
[2021-12-12] MEDS: prednisoLONE ACETATE 1% OPHTH SUSP 5 ML BOTTLE OD SCH ×4 (11:30→21:51)
[2021-12-12] MEDS: BICTEGRAV/EMTRICIT/TENOFOV (BIKTARVY) 50-200-25 MG TABLET PO SCH (13:28)
[2021-12-13 07:27] LABS: HEMATOCRIT 27.8 % (35.4-49); HEMOGLOBIN 9.1 GM/dL (11.7-16.9); MCH 31.3 pg (25.7-33.7); MCHC 32.7 g/dl (32.0-35.9); MEAN CELL VOLUME 95.7 fl (80-96); PLATELET COUNT 309 10^3/uL (134-434); RDW 13.4 % (11.9-15.9); WHITE BLOOD COUNT 17.7 K/mm3 (4.0-10.0)
[2021-12-13] MEDS: ALBUTEROL SO4 2.5/IPRATROPIUM 0.5 INH SOL 3 ML VIAL.NEB. NEB SCH ×4 (07:44→20:09)
[2021-12-13 07:46] LABS: CHLORIDE 100 mmol/L (98-107); SODIUM 144 mmol/L (136-145)
[2021-12-13 07:52] LABS: ALBUMIN 2.6 g/dl (3.4-5.0); BLOOD UREA NITROGEN 21.3 mg/dL (7-18); MAGNESIUM 2.2 mg/dL (1.8-2.4)
[2021-12-13 07:54] LABS: CALCIUM 8.4 mg/dL (8.5-10.1); GLUCOSE,RANDOM 111 mg/dL (74-106)
[2021-12-13 07:55] LABS: PHOSPHOROUS 3.7 mg/dL (2.5-4.9); SGOT/AST 16 U/L (15-37); SGPT/ALT 68 U/L (13-61)
[2021-12-13 07:56] LABS: BILIRUBIN,TOTAL 0.3 mg/dL (0.2-1)
[2021-12-13 07:57] LABS: ALK PHOS 67 U/L (45-117); TOT PROT 5.3 g/dl (6.4-8.2)
[2021-12-13 08:01] LABS: CREATININE 0.8 mg/dL (0.55-1.3)
[2021-12-13 08:06] LABS: ANION GAP 0 MMOL/L (8-16); CO2 > 45 mmol/L (21-32)
[2021-12-13] MEDS: NICOTINE 14 MG/24 HOURS TOPICAL PATCH TD SCH ×3 (10:58→14:53)
[2021-12-13] MEDS: methylPREDNISolone NA SUCC 40 MG/1 ML VIAL IVPUSH SCH ×3 (10:59→14:52)
[2021-12-13] MEDS: OLANZapine 5 MG TABLET PO SCH ×3 (10:59→21:17)
[2021-12-13] MEDS: MULTIVITAMINS (DAILY MVI) TABLET (FP) PO SCH ×2 (10:59→12:05)
[2021-12-13] MEDS: amLODIPine BESYLATE 5 MG TABLET (FP) PO SCH ×2 (10:59→12:03)
[2021-12-13] MEDS: PANTOPRAZOLE SODIUM 40 MG VIAL IVPUSH SCH ×2 (10:59→12:05)
[2021-12-13] MEDS: CLOPIDOGREL BISULFATE 75 MG TABLET (FP) PO SCH ×2 (10:59→12:04)
[2021-12-13] MEDS: prednisoLONE ACETATE 1% OPHTH SUSP 5 ML BOTTLE OD SCH ×4 (11:00→21:18)
[2021-12-13] MEDS: BICTEGRAV/EMTRICIT/TENOFOV (BIKTARVY) 50-200-25 MG TABLET PO SCH ×3 (11:03→14:53)
[2021-12-14 08:19] LABS: HEMATOCRIT 27.5 % (35.4-49); MCH 31.4 pg (25.7-33.7); MCHC 32.6 g/dl (32.0-35.9); MEAN CELL VOLUME 96.3 fl (80-96); MEAN PLT VOLUME 7.5 fl (7.5-11.1); PLATELET COUNT 277 10^3/uL (134-434); RBC 2.85 M/mm3 (4.00-5.60); RDW 13.4 % (11.9-15.9); WHITE BLOOD COUNT 16.7 K/mm3 (4.0-10.0)
[2021-12-14 08:34] LABS: CHLORIDE 98 mmol/L (98-107); SODIUM 144 mmol/L (136-145)
[2021-12-14 08:36] LABS: ALBUMIN 2.7 g/dl (3.4-5.0)
[2021-12-14 08:37] LABS: BLOOD UREA NITROGEN 19.1 mg/dL (7-18); GLUCOSE,RANDOM 97 mg/dL (74-106); MAGNESIUM 2.4 mg/dL (1.8-2.4)
[2021-12-14 08:39] LABS: SGPT/ALT 72 U/L (13-61)
[2021-12-14 08:40] LABS: CREATININE 0.8 mg/dL (0.55-1.3); PHOSPHOROUS 4.1 mg/dL (2.5-4.9); SGOT/AST 24 U/L (15-37)
[2021-12-14 08:41] LABS: BILIRUBIN,TOTAL 0.4 mg/dL (0.2-1); TOT PROT 5.4 g/dl (6.4-8.2)
[2021-12-14 08:42] LABS: ALK PHOS 71 U/L (45-117)
[2021-12-14] MEDS: ALBUTEROL SO4 2.5/IPRATROPIUM 0.5 INH SOL 3 ML VIAL.NEB. NEB SCH ×4 (08:52→20:48)
[2021-12-14] MEDS: NICOTINE 14 MG/24 HOURS TOPICAL PATCH TD SCH (09:39)
[2021-12-14] MEDS: MULTIVITAMINS (DAILY MVI) TABLET (FP) PO SCH (09:39)
[2021-12-14] MEDS: PANTOPRAZOLE SODIUM 40 MG VIAL IVPUSH SCH (09:39)
[2021-12-14] MEDS: methylPREDNISolone NA SUCC 40 MG/1 ML VIAL IVPUSH SCH (09:39)
[2021-12-14] MEDS: CLOPIDOGREL BISULFATE 75 MG TABLET (FP) PO SCH (09:39)
[2021-12-14] MEDS: BICTEGRAV/EMTRICIT/TENOFOV (BIKTARVY) 50-200-25 MG TABLET PO SCH (09:40)
[2021-12-14] MEDS: OLANZapine 5 MG TABLET PO SCH ×2 (09:40→21:13)
[2021-12-14] MEDS: amLODIPine BESYLATE 5 MG TABLET (FP) PO SCH (09:41)
[2021-12-14 09:42] LABS: ANION GAP 1 MMOL/L (8-16); CO2 > 45 mmol/L (21-32)
[2021-12-14] MEDS: prednisoLONE ACETATE 1% OPHTH SUSP 5 ML BOTTLE OD SCH ×4 (09:42→21:17)
[2021-12-14] MEDS: LORazepam 2 MG/ML SDV VIAL IVPUSH PRN (10:39)
[2021-12-14] MEDS: APIXABAN 5 MG TABLET PO SCH ×2 (13:59→21:13)
[2021-12-14] MEDS ORDERED: LORazepam 2 MG/ML SDV VIAL IM PRN (16:43)
[2021-12-15] MEDS: ALBUTEROL SO4 2.5/IPRATROPIUM 0.5 INH SOL 3 ML VIAL.NEB. NEB SCH ×4 (05:00→19:51)
[2021-12-15] MEDS: ALBUTEROL SO4 HFA INHALER IH PRN ×2 (06:35→21:40)
[2021-12-15] MEDS: LORazepam 2 MG/ML SDV VIAL IVPUSH PRN (08:19)
[2021-12-15] MEDS: BICTEGRAV/EMTRICIT/TENOFOV (BIKTARVY) 50-200-25 MG TABLET PO SCH (09:14)
[2021-12-15] MEDS: APIXABAN 5 MG TABLET PO SCH ×2 (09:14→21:40)
[2021-12-15] MEDS: NICOTINE 14 MG/24 HOURS TOPICAL PATCH TD SCH (09:14)
[2021-12-15] MEDS: CLOPIDOGREL BISULFATE 75 MG TABLET (FP) PO SCH (09:14)
[2021-12-15] MEDS: prednisoLONE ACETATE 1% OPHTH SUSP 5 ML BOTTLE OD SCH ×4 (09:14→21:42)
[2021-12-15] MEDS: MULTIVITAMINS (DAILY MVI) TABLET (FP) PO SCH (09:15)
[2021-12-15] MEDS: PANTOPRAZOLE SODIUM 40 MG VIAL IVPUSH SCH (09:15)
[2021-12-15] MEDS: OLANZapine 5 MG TABLET PO SCH ×2 (09:15→21:40)
[2021-12-15] MEDS: methylPREDNISolone NA SUCC 40 MG/1 ML VIAL IVPUSH SCH (09:15)
[2021-12-15] MEDS: amLODIPine BESYLATE 5 MG TABLET (FP) PO SCH (09:17)
[2021-12-16] MEDS: ALBUTEROL SO4 HFA INHALER IH PRN ×2 (02:15→10:09)
[2021-12-16] MEDS: ALBUTEROL SO4 2.5/IPRATROPIUM 0.5 INH SOL 3 ML VIAL.NEB. NEB SCH ×4 (08:11→19:59)
[2021-12-16] MEDS: APIXABAN 5 MG TABLET PO SCH ×2 (10:08→21:25)
[2021-12-16] MEDS: MULTIVITAMINS (DAILY MVI) TABLET (FP) PO SCH (10:08)
[2021-12-16] MEDS: OLANZapine 5 MG TABLET PO SCH (10:08)
[2021-12-16] MEDS: amLODIPine BESYLATE 5 MG TABLET (FP) PO SCH (10:08)
[2021-12-16] MEDS: BICTEGRAV/EMTRICIT/TENOFOV (BIKTARVY) 50-200-25 MG TABLET PO SCH (10:08)
[2021-12-16] MEDS: NICOTINE 14 MG/24 HOURS TOPICAL PATCH TD SCH (10:08)
[2021-12-16] MEDS: CLOPIDOGREL BISULFATE 75 MG TABLET (FP) PO SCH (10:08)
[2021-12-16] MEDS: methylPREDNISolone NA SUCC 40 MG/1 ML VIAL IVPUSH SCH (10:09)
[2021-12-16] MEDS: prednisoLONE ACETATE 1% OPHTH SUSP 5 ML BOTTLE OD SCH ×4 (10:09→21:28)
[2021-12-16] MEDS: PANTOPRAZOLE SODIUM 40 MG VIAL IVPUSH SCH (10:09)
[2021-12-17] MEDS: ALBUTEROL SO4 2.5/IPRATROPIUM 0.5 INH SOL 3 ML VIAL.NEB. NEB SCH ×4 (08:30→20:11)
[2021-12-17] MEDS: APIXABAN 5 MG TABLET PO SCH ×2 (09:47→21:21)
[2021-12-17] MEDS: predniSONE 10 MG TABLET (UD) PO SCH (09:47)
[2021-12-17] MEDS: NICOTINE 14 MG/24 HOURS TOPICAL PATCH TD SCH (09:47)
[2021-12-17] MEDS: BICTEGRAV/EMTRICIT/TENOFOV (BIKTARVY) 50-200-25 MG TABLET PO SCH (09:47)
[2021-12-17] MEDS: PANTOPRAZOLE SODIUM 40 MG VIAL IVPUSH SCH (09:48)
[2021-12-17] MEDS: prednisoLONE ACETATE 1% OPHTH SUSP 5 ML BOTTLE OD SCH ×4 (09:48→21:21)
[2021-12-17] MEDS: amLODIPine BESYLATE 5 MG TABLET (FP) PO SCH (09:48)
[2021-12-17] MEDS: CLOPIDOGREL BISULFATE 75 MG TABLET (FP) PO SCH (09:48)
[2021-12-17] MEDS: MULTIVITAMINS (DAILY MVI) TABLET (FP) PO SCH (09:48)
[2021-12-17] MEDS: methylPREDNISolone NA SUCC 40 MG/1 ML VIAL IVPUSH SCH (19:16)
[2021-12-17] MEDS ORDERED: guaiFENesin/D-METHORPHAN HB 10 ML UNIT-DOSE CUPS PO ONE (20:16)
[2021-12-18] MEDS: ALBUTEROL SO4 HFA INHALER IH PRN ×2 (02:00→13:18)
[2021-12-18] MEDS: ALBUTEROL SO4 2.5/IPRATROPIUM 0.5 INH SOL 3 ML VIAL.NEB. NEB SCH ×2 (08:20→11:32)
[2021-12-18] MEDS: APIXABAN 5 MG TABLET PO SCH (09:27)
[2021-12-18 09:28] VITALS: BP 126/62; PULSE 97; TEMP 98.4
[2021-12-18] MEDS: NICOTINE 14 MG/24 HOURS TOPICAL PATCH TD SCH (09:29)
[2021-12-18] MEDS: amLODIPine BESYLATE 5 MG TABLET (FP) PO SCH (09:30)
[2021-12-18] MEDS: CLOPIDOGREL BISULFATE 75 MG TABLET (FP) PO SCH (09:30)
[2021-12-18] MEDS: predniSONE 10 MG TABLET (UD) PO SCH (09:30)
[2021-12-18] MEDS: BICTEGRAV/EMTRICIT/TENOFOV (BIKTARVY) 50-200-25 MG TABLET PO SCH (09:30)
[2021-12-18] MEDS: prednisoLONE ACETATE 1% OPHTH SUSP 5 ML BOTTLE OD SCH ×2 (09:31→13:18)
[2021-12-18] MEDS: PANTOPRAZOLE SODIUM 40 MG VIAL IVPUSH SCH (09:31)
[2021-12-18] MEDS: MULTIVITAMINS (DAILY MVI) TABLET (FP) PO SCH (09:31)
== END 2021-12-18 14:36 | DRG 175 ==
LOC: JER 13:11 → JERBED 20:24 → JICU 21:43 → J4W 12-10 08:26
PROVIDERS: ADMIT Internal Medicine Pulmonary Disease; ATTEND Internal Medicine
DX: I26.93 Single subsegmental thrombotic pulmonary embolism without acute cor pulmonale (principal); J96.22 Acute and chronic respiratory failure with hypercapnia; J96.21 Acute and chronic respiratory failure with hypoxia; J44.1 Chronic obstructive pulmonary disease with (acute) exacerbation; K92.2 Gastrointestinal hemorrhage, unspecified; I47.1 Supraventricular tachycardia; I10 Essential (primary) hypertension; E78.5 Hyperlipidemia, unspecified; H40.9 Unspecified glaucoma; Z99.81 Dependence on supplemental oxygen; F22 Delusional disorders; F17.210 Nicotine dependence, cigarettes, uncomplicated; Z85.528 Personal history of other malignant neoplasm of kidney; Z21 Asymptomatic human immunodeficiency virus [HIV] infection status
CPT/HCPCS: 0241U-QW; 36415; 36430; 36600; 70450-TC; 71045-TC-FY; 71275-TC; 80048; 80053; 81003; 82272; 82550; 82553; 82803; 83605; 83735; 84100; 84484; 85025; 85027; 85610; 85730; 86850; 86900; 86901; 86922; 87040; 87070; 87086; 87205; 87522; 87899; 93005; 93010; 93306-TC; 93308; 93970-TC; 94640; 94660; 97116-GP; 97161-GP; 99285-25; C9803-CS; J2597; P9058; Q9967; U0003; U0005